=== PATIENT | female | born 1995 | race African-American/Black ===

== ENCOUNTER 2017-09-02 14:51 | Emergency (ER) | payer MEDICAID ==
[2017-09-02 15:50] LABS: APPEARANCE SLT CLOUDY (CLEAR); BILIRUBIN NEGATIVE (NEGATIVE); COLOR YELLOW (YELLOW); GLUCOSE NEGATIVE (NEGATIVE); KETONE NEGATIVE (NEGATIVE); NITRITE POSITIVE (NEGATIVE); PROTEIN NEGATIVE (NEGATIVE); UROBILINOGEN NORMAL (NORMAL)
[2017-09-02 15:52] LABS: BACTERIA MANY /hpf (NONE SEEN); EPITHELIAL CELLS 0-5 /hpf (0-5); RED CELLS - URINE 0-5 /hpf (0-5); WHITE CELLS - URINE 0-5 /hpf (0-5)
== END 2017-09-02 16:09 | disposition home or self-care (01) ==
LOC: D.ER 14:51
PROVIDERS: Family Medicine
DX: N39.0 Urinary tract infection, site not specified (principal)

== ENCOUNTER 2018-01-21 22:15 | Emergency (ER) | payer MEDICAID ==
[~2018-01-21] VITALS: Ht 170.2 cm; Wt 51.4 kg
[2018-01-21 22:25] VITALS: Ht 170.2 cm; Wt 51.4 kg
[2018-01-21 22:40] LABS: APPEARANCE CLEAR (CLEAR); BILIRUBIN NEGATIVE (NEGATIVE); COLOR TAN (YELLOW); GLUCOSE NEGATIVE (NEGATIVE); KETONE NEGATIVE (NEGATIVE); NITRITE POSITIVE (NEGATIVE); PROTEIN NEGATIVE (NEGATIVE); UROBILINOGEN NORMAL (NORMAL)
[2018-01-21 22:43] LABS: BACTERIA MANY /hpf (NONE SEEN); EPITHELIAL CELLS 0-5 /hpf (0-5)
[2018-01-21 22:44] LABS: HCG URINE NEGATIVE (NEGATIVE)
[2018-01-21] MEDS ORDERED: CIPRO500 MG PO (22:58)
[2018-01-21 22:59] LABS: BASOPHILS 0.1 % (0-2); EOSINOPHILS 0.1 % (0-7); HEMATOCRIT 36.2 % (36.0-48.0); HEMOGLOBIN 12.2 g/dL (12-16); IMMATURE GRANULOCYTES 0.2 % (0-5); LYMPHOCYTES 10.9 % (15-50); MCH 29.3 pg (26.0-34.0); MCHC 33.7 g/dL (31.0-37.0); MEAN PLATELET VOLUME 11.3 fL (7.4-10.4); MONOCYTES 13.5 % (2-11); NEUTROPHILS 75.2 % (40-80); RBC 4.16 10x6/uL (4.00-5.40); RDW 13.2 % (11.5-14.5); WBC 10.7 10x3/uL (4.8-10.8)
[2018-01-21 23:06] LABS: PLATELET COUNT 126 10x3/uL (130-400)
[2018-01-21 23:09] LABS: CALC OSMOLALITY 276 mosm/kg (275-300); CALCIUM 8.6 mg/dL (8.5-10.1); CARBON DIOXIDE 23.7 mmol/L (21.0-32.0); CHLORIDE - SERUM 103 mmol/L (98-107); CREATININE - SERUM 0.8 mg/dL (0.6-1.3); GLUCOSE 117 mg/dL (74-106); POTASSIUM - SERUM 3.3 mmol/L (3.5-5.1); SODIUM 139 mmol/L (136-145); UREA NITROGEN 6 mg/dL (7-18); eGFR NON AFRICAN AMERICAN > 90 mL/min (90-120)
[2018-01-21 23:53] VITALS: BP 137/77
== END 2018-01-21 23:54 | disposition home or self-care (01) ==
LOC: D.ER 22:15
PROVIDERS: Emergency Medicine
DX: N39.0 Urinary tract infection, site not specified (principal); R51 Headache; R50.9 Fever, unspecified

== ENCOUNTER 2018-11-16 11:11 | Emergency (ER) | payer MEDICAID ==
[~2018-11-16] VITALS: Ht 170.2 cm; Wt 58.2 kg
[~2018-11-16 11:11] MED LIST: CIPRO500 MG PO
[2018-11-16 11:14] VITALS: Ht 170.2 cm; Wt 58.2 kg
[2018-11-16 11:51] LABS: APPEARANCE CLOUDY (CLEAR); BILIRUBIN NEGATIVE (NEGATIVE); COLOR YELLOW (YELLOW); GLUCOSE NEGATIVE (NEGATIVE); KETONE MODERATE mg/dL (NEGATIVE); NITRITE POSITIVE (NEGATIVE); PROTEIN 1+ mg/dL (NEGATIVE); UROBILINOGEN NORMAL (NORMAL)
[2018-11-16 11:52] LABS: BACTERIA MANY /hpf (NONE SEEN); EPITHELIAL CELLS 0-5 /hpf (0-5); MUCUS <1+ /lpf (NONE SEEN); WHITE CELLS - URINE 25-50 /hpf (0-5)
[2018-11-16 12:04] LABS: BASOPHILS 0.2 % (0-2); EOSINOPHILS 0.1 % (0-7); HEMATOCRIT 36.7 % (36.0-48.0); HEMOGLOBIN 12.4 g/dL (12-16); IMMATURE GRANULOCYTES 0.2 % (0-5); LYMPHOCYTES 4.6 % (15-50); MCH 29.3 pg (26.0-34.0); MCHC 33.8 g/dL (31.0-37.0); MCV 86.8 fL (80.0-100.0); MEAN PLATELET VOLUME 12.1 fL (7.4-10.4); MONOCYTES 11.4 % (2-11); NEUTROPHILS 83.5 % (40-80); RBC 4.23 10x6/uL (4.00-5.40); RDW 13.8 % (11.5-14.5); WBC 17.9 10x3/uL (4.8-10.8)
[2018-11-16 12:08] LABS: PLATELET COUNT 216 10x3/uL (130-400)
[2018-11-16 12:59] LABS: ALBUMIN 3.6 g/dL (3.4-5.0); ALKALINE PHOSPHATASE 49 U/L (46-116); ALT (SGPT) 12 U/L (10-68); AMYLASE - SERUM 80 U/L (25-115); BILIRUBIN - TOTAL 0.99 mg/dL (0.2-1.3); CALC OSMOLALITY 277 mosm/kg (275-300); CALCIUM 8.6 mg/dL (8.5-10.1); CARBON DIOXIDE 21.9 mmol/L (21.0-32.0); CHLORIDE - SERUM 106 mmol/L (98-107); CREATININE - SERUM 0.7 mg/dL (0.6-1.3); GLUCOSE 96 mg/dL (74-106); LIPASE 89 U/L (73-393); POTASSIUM - SERUM 3.5 mmol/L (3.5-5.1); PROTEIN - SERUM 7.3 g/dL (6.4-8.2); SODIUM 140 mmol/L (136-145); UREA NITROGEN 10 mg/dL (7-18); eGFR NON AFRICAN AMERICAN > 90 mL/min (90-120)
[2018-11-16] MEDS ORDERED: ULTRAM50 MG PO (13:13)
[2018-11-16] MEDS ORDERED: OMNICEF300 MG PO (13:13)
[2018-11-16 13:45] VITALS: BP 118/74
== END 2018-11-16 13:47 | disposition home or self-care (01) ==
LOC: D.ER 11:11
PROVIDERS: Family Medicine
DX: N39.0 Urinary tract infection, site not specified (principal); R00.0 Tachycardia, unspecified

== ENCOUNTER 2018-12-29 21:28 | Emergency (ER) | payer MEDICAID ==
[~2018-12-29] VITALS: Ht 170.2 cm; Wt 56.8 kg
[~2018-12-29 21:28] MED LIST changes: +OMNICEF300 MG PO; +ULTRAM50 MG PO
[2018-12-29 21:31] VITALS: Ht 170.2 cm; Wt 56.8 kg
[2018-12-29] MEDS ORDERED: CLEOCIN HCL300 MG PO (22:58)
[2018-12-29] MEDS ORDERED: TORADOL10 MG PO (22:58)
[2018-12-29 23:26] VITALS: BP 121/84
== END 2018-12-29 23:37 | disposition home or self-care (01) ==
LOC: D.ER 21:28
DX: M27.69 Other endosseous dental implant failure (principal)

== ENCOUNTER 2020-08-06 21:54 | Emergency (ER) | payer SELFPAY ==
[~2020-08-06] VITALS: Ht 170.2 cm; Wt 57.3 kg
[~2020-08-06 21:54] MED LIST changes: +BACLOFEN20 M1 PO; +CLEOCIN HCL300 MG PO; +TORADOL10 MG PO; +VOLTAREN75 MG PO
[2020-08-06 21:59] VITALS: BP 126/78; Ht 170.2 cm; Wt 57.3 kg
[2020-08-06 23:17] LABS: BILIRUBIN NEGATIVE (NEGATIVE); HCG URINE NEGATIVE (NEGATIVE); KETONE NEGATIVE (NEGATIVE); NITRITE NEGATIVE (NEGATIVE); UROBILINOGEN NORMAL mg/dL (< 2)
[2020-08-06 23:19] LABS: BACTERIA FEW HPF (NONE SEEN); SQUAMOUS EPITHELIAL 0-5 HPF (0-4); WHITE CELLS - URINE 0-5 HPF (0-4)
[2020-08-06] MEDS ORDERED: IBUPROFEN800 MG PO (23:23)
== END 2020-08-06 23:30 | disposition home or self-care (01) ==
LOC: D.ER 21:54
PROVIDERS: Emergency Medicine
DX: M54.5 Low back pain (principal)